=== PATIENT | female | born 1980 | race Caucasian/White ===

== ENCOUNTER 2017-11-05 22:19 | Emergency (ER) | payer MEDICAID, SELFPAY ==
[2017-11-05 22:20] VITALS: BP 142/98; PULSE 113; RESP 18; TEMP 37; O2SAT 96; BMI 48.8
--- NOTE | 2017-11-05 22:26 | NURSING ---
AFTER PT WAS TRIAGED SHE ASKED HOW LONG OF A WAIT IT WOULD BE. I INFORMED HER I DID NOT HAVE AN EXACT WAIT TIME BUT THAT WE STAFF IS WORKING FAST THEY CAN TO GET EVERYONE SEEN. PTS VITAL SIGNS ARE STABLE. PT STATED FORGET IT I WILL JUST GO TO [facility].
== END 2017-11-05 22:25 | disposition left against medical advice (07) ==
LOC: ED 23:49
PROVIDERS: Emergency Provider Emergency Medicine; Family Provider Family Medicine; PCP Family Medicine
DX: R06.02 Shortness of breath (principal)

== ENCOUNTER → 2018-05-31 09:09 | Outpatient (CLI) | payer MEDICAID, SELFPAY | PROVIDERS: Family Provider Family Medicine; PCP Family Medicine; Referring Provider Registered Nurse; Visit Provider Registered Nurse | DX: R00.2 Palpitations (principal) | CPT/HCPCS: 93225; 93226 ==

== ENCOUNTER 2019-12-09 08:03 | Observation (INO) | payer MEDICAID, SELFPAY ==
[2019-12-09] VITALS (17 sets, daily range): BP systolic 109–148; BP diastolic 61–94; PULSE 67–95; RESP 16–20; TEMP 36.6–37.1; O2SAT 95–98; BMI 47.2; BMI 46.9; BMI 47.3
--- NOTE | 2019-12-09 08:16 | EKG12_ITS ---
Test Reason : CP Blood Pressure : / mmHG Vent. Rate : 077 BPM Atrial Rate : 077 BPM P-R Int : 178 ms QRS Dur : 104 ms QT Int : 408 ms P-R-T Axes : 012 000 034 degrees QTc Int : 461 ms Normal sinus rhythm Low voltage QRS Borderline ECG Confirmed by JEFF SHEPARD, KARI ([id number]), business editor MORRIS FRANKLIN ([id number] on 12/11/2019 9:34:38 AM Referred By: MAGGIE Confirmed By:KARI AGUILAR MD
--- NOTE | 2019-12-09 08:17 | ED.VIS.GEN ---
History of Present Illness Chief Complaint: Chest Pain Informant: Patient Onset: Today Timing: Continuous Current Severity: Moderate Maximum Severity: Moderate Narrative: Patient presents with left-sided chest wall pain, it started about 2 hours ago she first described it as pressure but now it is aching. There is slight pleuritic component with this. She has no fever chills cough or congestion she has a history of GERD and this feels somewhat different. She is a diabetic, she does take antihypertensives. The pain is not radiating to her back it is not tearing in nature. She has no current abdominal pain or nausea. Past Medical History - Allergies and Home Meds Allergies/Adverse Reactions: Allergies Latex, Natural Rubber Allergy (Verified 12/09/19 08:04) Itching oxycodone HCl [From Percocet] Allergy (Verified 12/09/19 08:04) Rash tramadol HCl [From Ultram] Adverse Reaction (Verified 12/09/19 08:04) Upset Stomach Primary Care Physician: Liborio Dukes MD [Primary Care Provider] - Past Medical History: - - Hypertension, diabetes, obesity, asthma Surgical History: - - appendic, gallbladder,carpal tunnel,d&c oral surgery. Smoking Status: Former smoker - Family History Maternal Family History: Reports: Diabetes, Hypertension Paternal Family History: Reports: Diabetes, Heart Disease, Hypertension Review of Systems General: Denies: Fever Eyes: Denies: Visual changes - bilaterally ENT: Denies: Rhinorrhea, Sore throat Cardiovascular: Reports: Chest pain. Denies: Palpitations, Heart racing Respiratory: Denies: Dyspnea Gastrointestinal: Denies: Abdominal pain, Nausea Genitourinary: Denies: Dysuria Musculoskeletal: Denies: Myalgias, Neck pain Skin: Denies: Rash Neurological: Denies: Weakness Psych: Denies: Depression Endocrine: Denies: Polyuria Physical Exam Vital Signs/Narrative: Vital Signs Temp Pulse Resp BP Pulse Ox 12/09/19 08:04 98.3 F 83 17 148/76 H 96 General: Obese, - - She appears in some distress Head: Normocephalic Eyes: Perrl. Negative for: Pale conjunctiva ENT: Moist mucous membranes Neck: Supple Cardiovascular: Regular rate, Regular rhythm Respiratory: No distress Abdomen: Soft, Nontender Back: Nontender, Normal Inspection. Negative for: CVA tenderness Extremities: Nontender, No edema Skin: Normal color, No rash Neurological: Alert, Normal Strength, Normal Sensation Psychological: Normal affect Diagnostic/Tx/Re-eval Chest X-Ray - ED: 1 View, Read by Radiologist, Normal, Heart, Lungs - Rhythm Strip Rhythm Strip: Sinus Rhythm Rate: 77 Ectopy: None - EKG Initial EKG Interpretation: Sinus Rhythm, - - Normal sinus rhythm with a rate of 77. Normal MS interval. Normal QTc interval. Very slight nonspecific changes. Otherwise normal EKG. Interpreted by emergency doctor. - Medical Decision Making Patient has an unremarkable work-up, she has a nonspecific EKG, her heart score is a 4 therefore she will be admitted for observation for stress test. ED Disposition - Plan for ED Patient: Referrals: Liborio Dukes MD [Primary Care Provider] -
--- NOTE | 2019-12-09 08:20 | RAD_ITS ---
STUDY: X-RAY CHEST REASON FOR EXAM: Female, 39 years old. CP - ACUTE ONSET TECHNIQUE: Single AP portable view of the chest. COMPARISON: Comparison is made with prior study dated February 18, 2016. FINDINGS: EKG electrodes are seen. The lungs are clear and expanded. There is no demonstrated pleural abnormality. Normal size heart. Normal mediastinum and marko. Normal visualized pulmonary arteries. Normal visualized aortic arch and descending thoracic aorta. Normal visualized thoracic spine. Normal visualized ribs, clavicles, and shoulders. There is no demonstrated abnormality of the visualized soft tissue structures of the upper abdomen. RAD/Chest 1 View (Portable) IMPRESSION: Normal x-ray examination of the chest. Electronically Signed: Bill Helm, at 8:41 EDT , Service support ,
[2019-12-09] MEDS: Aspirin 81 MG TAB.CHEW 324 MG PO (08:22)
[2019-12-09 08:24] LABS: Absolute Lymphocyte Count 2.15 X10^3/uL (0.83-4.51); Absolute Neutrophil Count 4.1 X10^3/uL (2.0-7.7); Basophil# 0.03 X10^3/uL; Basophil% 0.4 % (0-1); Eosinophil# 0.11 X10^3/uL; Eosinophils% 1.6 % (0-5); Hematocrit 39.9 % (37-47); Hemoglobin 13.2 g/dL (12.0-15.0); Lymphocyte # 2.15 X10^3/ul (4.0); Lymphocyte % 30.7 % (19-41); Mean Corp Hgb Conc 33.1 g/dL (32-36); Mean Corpuscular Hgb 27.7 pg (27.0-32.0); Mean Corpuscular Volume 83.8 fL (81-99); Monocyte# 0.61 X10^3/uL; Monocyte% 8.7 % (0-10); NRBC Flagged by Analyzer 0 % (0-5); Neutrophil # 4.08 X10^3/uL (2.7-7.7); Neutrophil % 58.2 % (47-70); Platelet Count 338 K/mm3 (150-450); RBC Distribution Width CV 13.5 % (11.6-14.6); RBC Distribution Width SD 41.1 fl (35.1-43.9); Red Blood Count 4.76 M/mm3 (4.2-5.4)
[2019-12-09] MEDS: Nitroglycerin SL (ED/IMG/CATH) 0.4 MG TABLET SUBLINGUAL ×3 (08:25→08:36)
[2019-12-09 08:41] LABS: Anion Gap 5 (5-15); BUN 10 mg/dL (7-18); BUN/Creat Ratio 13.1 RATIO (10-20); Calcium,Total 8.8 mg/dL (8.5-10.1); Chloride 105 mmol/L (98-107); Creatinine, Serum 0.76 mg/dL (0.55-1.02); EST Glomerular Filtration Rate 89 mL/min (>60); Est Glom Filt Rate - Afr Amer 107 mL/min (>60); Estimated Creatinine Clearance 112.42 ml/min; Glucose 159 mg/dL (74-106); Potassium 3.9 mmol/L (3.5-5.1); Sodium Level 137 mmol/L (136-145)
[2019-12-09 08:44] LABS: D-Dimer Quantitative (DVT/PE) <= 0.27 FEU/ug/m (0.27-0.49)
--- NOTE | 2019-12-09 09:20 | HP.PCM_ITS ---
Problem List (1) Chest pain Status: Acute (2) Asthma Status: Chronic (3) Bipolar disorder Status: Chronic (4) Diabetes Status: Chronic (5) GERD (gastroesophageal reflux disease) Status: Chronic (6) IBS (irritable bowel syndrome) Status: Chronic (7) Morbid obesity Status: Chronic (8) Sleep apnea Status: Suspected History of Present Illness Date of Admission: 12/09/19 Chief Complaint: Chest pain The patient is a 39 year old F with past medical history sent in for obesity with BMI 47.3, essential hypertension diabetes mellitus type 2 who presented with chest pain. Pain started under her left breast later radiating to the retrosternal region. Patient describes the pain as pressure in nature. Due to the persistent nature of her symptoms she presented to the emergency department in the ED her initial assessment including EKG and initial cardiac enzymes came back unremarkable admitted to monitored bed for further management Past Medical History Past Medical History (Chronic Problems): Chronic Problems GERD (gastroesophageal reflux disease) (Chronic) IBS (irritable bowel syndrome) (Chronic) Morbid obesity (Chronic) Diabetes (Chronic) Asthma (Chronic) Bipolar disorder (Chronic) Allergies Latex, Natural Rubber Allergy (Verified 12/09/19 08:04) Itching oxycodone HCl [From Percocet] Allergy (Verified 12/09/19 08:04) Rash tramadol HCl [From Ultram] Adverse Reaction (Verified 12/09/19 08:04) Upset Stomach Home Medications: Ambulatory Orders Medication Instructions Recorded metFORMIN HCl [Glucophage] 500 mg PO BID 07/27/15 Dicyclomine HCl [Bentyl] 20 mg PO ACHS 02/15/16 Omeprazole [Prilosec] 40 mg PO BID 02/15/16 Lisinopril [Zestril] 10 mg PO DAILY #30 tablet 02/19/16 Albuterol Sulfate [Albuterol 2 inh INHALATION Q4H PRN PRN 12/09/19 Sulfate HFA] Fluticasone/Vilanterol [Breo 1 ea IH DAILY 12/09/19 Ellipta 200-25 Mcg INH] Surgical History: - - appendic, gallbladder,carpal tunnel,d&c oral surgery. Smoking Status: Former smoker - *Family History Maternal History Items: Diabetes, Hypertension Paternal History Items: Diabetes, Heart Disease, Hypertension Review of Systems Constitutional: Denies: Anorexia, Chills, Fever, Night Sweats, Weight Change HEENT: Denies: Head Aches, Sinus Congestion, Sinus Drainage Cardiovascular: Reports: Chest Pain, Chest Tightness. Denies: Orthopnea, Palpitations, Paroxysmal Noc. Dyspnea Respiratory: Denies: Cough, Shortness of breath at rest, Shortness of breath upon exertion, Sputum production Gastrointestinal: Denies: Abdominal Pain, Hematemesis, Hematochezia, Nausea, Melena, Vomiting Genitourinary: Denies: Dysuria, Frequency, Hematuria, Urgency Musculoskeletal: Denies: Joint Pain, Joint Tenderness Skin: Denies: Rash Neurological: Denies: Focal weakness, Numbness, Tingling Psychiatric: Denies: Homicidal Ideations, Suicidal Ideations Hematologic/ Lymphatic: Denies: Easy Bruising, Easy Bleeding VTE Information - Inpt Only VTE Present on Admission: No VTE Mechan Device Prophylaxis: None VTE Pharm Prophylaxis ordered?: Yes Objective: GENERAL: cooperative HEENT: Atraumatic; EYES; Anicteric, Normal Conjunctiva NECK; supple, normal thyroid, RESPIRATORY: Diminished to auscultation CARDIOVASCULAR: Regular S1 S2, GI: soft, normoactive bowel sounds, : No Renal angle tenderness; EXTREMITIES: No edema, no clubbing, MUSCULOSKELETAL: no muscle waisting NEURO: Awake; no lateralizing signs. SKIN: No Rash PSYCH; Flat affect - Physical Exam Vitals/I&O's: Vital Signs Temp Pulse Resp BP Pulse Ox 98.3 F 89 17 112/67 96 12/09/19 08:04 12/09/19 08:43 12/09/19 08:04 12/09/19 08:43 12/09/19 08:16 Oxygen Delivery Method Room Air Weight: 158.2 kg Body Mass Index (BMI) 47.2 Laboratory Results 12/09/19 08:10: WBC 7.0, RBC 4.76, Hgb 13.2, Hct 39.9, MCV 83.8, MCH 27.7, MCHC 33.1, RDW Std Deviation 41.1, RDW Coeff of [place] 13.5, Plt Count 338, MPV 9.0, Immature Gran % (Auto) 0.400, Neut % (Auto) 58.2, Lymph % (Auto) 30.7, [place] % (Auto) 8.7, Eos % (Auto) 1.6, Baso % (Auto) 0.4, Absolute Neuts (auto) 4.1, Absolute Lymphs (auto) 2.15, Nucleated RBC % 0 12/09/19 08:10: D-Dimer Quant (PE/DVT) <= 0.27 12/09/19 08:10: Sodium 137, Potassium 3.9, Chloride 105, Carbon Dioxide 27.0, Anion Gap 5, BUN 10, Creatinine 0.76, Estim Creat Clear Calc 112.42, Est GFR (MDRD) Af Amer 107, Est GFR (MDRD) Non-Af 89, BUN/Creatinine Ratio 13.1, Glucose 159 H, Calcium 8.8, Troponin I < 0.015 Assessment/Plan All Active Problems Chest pain (Acute) Patient is a 39-year-old lady presented with chest pain 1. Chest pain ?Admitted to monitored bed ordered serial cardiac enzymes to rule out VA. Patient to undergo a nuclear stress test once VA is ruled out 2. Hypertension ~ blood pressure controlled, home medications continued with dose adjustment as needed 3. Diabetes mellitus type II ~Controlled patient's oral hypoglycemics held. Placed on Accu-Cheks a.c. and at bedtime and covered with sliding scale insulin 4. Obesity with BMI of 47.3 ?Weight loss advised 5. DVT prophylaxis ?Lovenox OBSV E&M: 45473 Observation care discharge
--- NOTE | 2019-12-09 09:28 | NURSING ---
PCU CP KITSANTHOSH
--- NOTE | 2019-12-09 10:40 | EKG12_ITS ---
Test Reason : CP Blood Pressure : / mmHG Vent. Rate : 062 BPM Atrial Rate : 062 BPM P-R Int : 192 ms QRS Dur : 102 ms QT Int : 434 ms P-R-T Axes : 019 010 039 degrees QTc Int : 440 ms Normal sinus rhythm Low voltage QRS Borderline ECG Confirmed by JEFF SHEPARD, KARI ([id number]), desk editor MORRIS FRANKLIN ([id number]) on 12/11/2019 9:53:35 AM Referred By: ROBERT Confirmed By:KARI AGUILAR MD
[2019-12-09] MEDS: Dicyclomine 10 MG Capsule 20 MG PO ×3 (11:57→22:39)
[2019-12-09] MEDS: Pantoprazole Sodium 40 MG Tablet PO ×2 (11:57→22:39)
[2019-12-09] MEDS: Lisinopril 10 MG Tablet PO (11:57)
[2019-12-09] MEDS: Enoxaparin 40 MG/0.4 ML Syringe SC (11:58)
[2019-12-09 12:11] LABS: Bedside Glucose 127 mg/dL (70-110)
[2019-12-09] MEDS: Albuterol 2.5 MG/3 ML VIAL.NEB. INHALATION ×2 (13:32→18:50)
[2019-12-09] MEDS: Insulin Lispro 100 UNIT/ML INSULN.PEN SC (16:28)
[2019-12-09 17:16] LABS: Bedside Glucose 157 mg/dL (70-110)
[2019-12-09] MEDS: Budesonide Respules 0.5 MG/2 ML AMPUL.NEB. INHALATION (18:50)
[2019-12-09 22:46] LABS: Bedside Glucose 140 mg/dL (70-110)
[2019-12-10 02:15] VITALS: BP 111/65; PULSE 75; RESP 16; TEMP 36.6; O2SAT 95
[2019-12-10 03:42] VITALS: PULSE 69
[2019-12-10 06:22] VITALS: BP 128/76; PULSE 70; RESP 18; TEMP 36.8; O2SAT 96
[2019-12-10] MEDS: Pantoprazole Sodium 40 MG Tablet PO (06:27)
[2019-12-10] MEDS: Lisinopril 10 MG Tablet PO (06:27)
[2019-12-10 06:40] VITALS: PULSE 77
[2019-12-10 06:47] LABS: Anion Gap 7 (5-15); BUN 12 mg/dL (7-18); BUN/Creat Ratio 15.4 RATIO (10-20); Chloride 106 mmol/L (98-107); Creatinine, Serum 0.78 mg/dL (0.55-1.02); EST Glomerular Filtration Rate 86 mL/min (>60); Est Glom Filt Rate - Afr Amer 104 mL/min (>60); Estimated Creatinine Clearance 109.53 ml/min; Glucose 139 mg/dL (74-106); Magnesium 2.3 mg/dL (1.6-2.6); Sodium Level 138 mmol/L (136-145)
[2019-12-10 06:56] LABS: Bedside Glucose 148 mg/dL (70-110)
--- NOTE | 2019-12-10 10:22 | STRESSREP ---
Stress Test Report Date: 12-10-2019 Procedure: Exercise tolerance test/imaging study Indications: Chest pain; shortness of breath/dyspnea Consent: Per the patient Procedure: The patient exercised on a Guzman protocol for 5 minutes and 30 seconds completing Stage I and 2 minutes and 30 seconds of Stage II achieving a peak heart rate of 169 bpm (94 % predicted maximal heart rate) with a peak blood pressure 160/78 mmHg and a peak MET capacity of 7 METs. The baseline ECG demonstrated sinus rhythm. The peak exercise ECG demonstrated no obvious ECG changes. [There were no cardiac dysrhythmias pretest, during exercise, or recovery]. The functional capacity was considered decreased. There was [no complaint of chest discomfort during exercise or recovery]. The examination was discontinued secondary to dyspnea. Impression: 1. Technically adequate (percent predicted maximal heart rate greater than 85%) exercise tolerance test 2. Peak exercise ECG no obvious ECG changes 3. [There were no cardiac dysrhythmias pretest, during exercise, or recovery] 4. Nuclear images pending Myocardial perfusion imaging study: Technique: The patient was injected with 15.0= mCi of technetium 99m Cardiolite and subsequently rest SPECT Cardiolite nuclear imaging was obtained in the horizontal long, vertical long, and short axis views. The patient exercised on a Guzman protocol for 5 minutes and 30 seconds completing Stage I and 2 minutes and 30 seconds of Stage II achieving a peak heart rate of 169 bpm (94 % predicted maximal heart rate) with a peak blood pressure 160/78 mmHg and a peak MET capacity of 7 METs. The patient was injected with 45.0 mCi of technetium 99m Cardiolite and subsequently stress SPECT Cardiolite nuclear imaging was obtained in the horizontal long, vertical long, and short axis views. A gated Cardiolite study at peak stress was obtained. Interpretation: Rest and stress SPECT Cardiolite nuclear imaging status post realignment and normalization demonstrates [the appearance of relative uniform tracer uptake and myocardial perfusion appearing within normal limits]. [There is end systolic thickening and brightening]. The gated Cardiolite study demonstrates [myocardial thickening and inward wall motion]. The reported LVEF is 79 %. Impression: 1. Rest and stress SPECT Cardiolite nuclear imaging demonstrate [relative uniform tracer uptake and myocardial perfusion appearing within normal limits]. 2. The gated Cardiolite study reports an LVEF of 79 %. This note was generated with [employer] software. It may contain incorrect words, spelling, and punctuation that were not noted in checking the note before signing.
--- NOTE | 2019-12-10 10:52 | DCINST_ITS ---
You will use the following diet at home:: Calorie/Carbohydrate Controlled (specify 1200, 1400, etc) - 1800 Your food should be the consistency of: Regular Discharge Activity: Return to Normal Activity Instructions: ED Chest Pain NonCardiac Allergies/Adverse Reactions: Allergies Latex, Natural Rubber Allergy (Verified 12/09/19 08:04) Itching oxycodone HCl [From Percocet] Allergy (Verified 12/09/19 08:04) Rash tramadol HCl [From Ultram] Adverse Reaction (Verified 12/09/19 08:04) Upset Stomach Medications to take at Discharge metFORMIN HCl [Glucophage] 500 mg PO BID 07/27/15 Dicyclomine HCl [Bentyl] 20 mg PO ACHS 02/15/16 Omeprazole [Prilosec] 40 mg PO BID 02/15/16 Lisinopril [Zestril] 10 mg PO DAILY #30 tablet 02/19/16 Albuterol Sulfate [Albuterol Sulfate HFA] 2 inh INHALATION Q4H PRN PRN 12/09/19 Fluticasone/Vilanterol [Breo Ellipta 200-25 Mcg INH] 1 ea IH DAILY 12/09/19 Primary Care Physician: Liborio Dukes MD [Primary Care Provider] - Please follow up with your Primary Care Physician in: in 1-2 weeks Test Results: Test results from this visit will be discussed in further detail at your follow- up appointment, if applicable. Proposed Discharge Date: 12/10/19
--- NOTE | 2019-12-10 10:54 | DS.PCM_ITS ---
Discharge Date and Diagnosis Date of Admission: 12/09/19 Date of Discharge: 12/10/19 - Primary Discharge Diagnosis Chest pain - Secondary Discharge Diagnosis Chronic Problems GERD (gastroesophageal reflux disease) (Chronic) IBS (irritable bowel syndrome) (Chronic) Morbid obesity (Chronic) Diabetes (Chronic) Asthma (Chronic) Bipolar disorder (Chronic) Hospital Course and Treatment Imaging Results: 12/10/19 05:55 Nuclear Stress Test - Treadmil [NM] AM (NON MEDS) Operations: None Summary of Care Provided: Patient is a 39-year-old lady presented with chest pain 1. Chest pain ?Admitted to monitored bed ordered serial cardiac enzymes to rule out CA. Patient underwent a nuclear stress test once CA was ruled out. Her nuclear stress test came back negative for stress-induced ischemia. It was therefore felt patient pain was musculoskeletal. Instructed to follow-up with PCP for subsequent management 2. Hypertension ~ blood pressure controlled, home medications continued with dose adjustment as needed 3. Diabetes mellitus type II ~Controlled patient's oral hypoglycemics held. Placed on Accu-Cheks a.c. and at bedtime and covered with sliding scale insulin 4. Obesity with BMI of 47.3 ?Weight loss advised 5. DVT prophylaxis ?Lovenox - Physical Exam Vitals/I&O's: Vital Signs Temp Pulse Resp BP Pulse Ox 98.2 F 77 18 128/76 H 96 12/10/19 06:22 12/10/19 06:40 12/10/19 06:22 12/10/19 06:22 12/10/19 06:22 Oxygen Delivery Method Room Air Weight: 157 kg Body Mass Index (BMI) 46.9 Intake and Output for Last 24 Hours 12/08/19 12/09/19 12/10/19 23:59 23:59 23:59 Intake Total 660 / 660 750 / 750 Balance 660 / 660 750 / 750 General: Alert HEENT: Atraumatic Lungs: Normal air movement Neurological: Neuro grossly intact Psych/Mental Status: Normal Affect Laboratory Results 12/09/19 11:00: Troponin I < 0.015 12/09/19 11:56: POC Glucose 127 H 12/09/19 14:10: Troponin I < 0.015 12/09/19 16:27: POC Glucose 157 H 12/09/19 22:38: POC Glucose 140 H 12/10/19 05:46: Sodium 138, Potassium 4.0, Chloride 106, Carbon Dioxide 25.0, Anion Gap 7, BUN 12, Creatinine 0.78, Estim Creat Clear Calc 109.53, Est GFR (MDRD) Af Amer 104, Est GFR (MDRD) Non-Af 86, BUN/Creatinine Ratio 15.4, Glucose 139 H, Calcium 9.0, Magnesium 2.3 12/10/19 06:25: POC Glucose 148 H Current Medications Acetaminophen (Tylenol) 650 mg PO Q6H PRN PRN PRN Reason: Pain Score 1-10/Temp > 100.7 F Al Hydroxide/Mg Hydroxide (Mylanta Ii) 30 ml PO Q6H PRN PRN PRN Reason: Gastric Burning Albuterol Sulfate (Ventolin Aerosols) 2.5 mg INHALATION Q4H PRN PRN Reason: SOB &/OR WHEEZING Albuterol Sulfate (Ventolin Aerosols) 2.5 mg INHALATION Q6HWA.RT [facility] Last Admin: 12/10/19 07:00 Dose: Not Given Documented by: Budesonide (Pulmicort Aerosol) 0.5 mg INHALATION Q12H.RT [facility] Last Admin: 12/10/19 07:00 Dose: Not Given Documented by: Dicyclomine HCl (Bentyl) 20 mg PO [facility] Last Admin: 12/10/19 06:26 Dose: Not Given Documented by: Enoxaparin Sodium (Lovenox) 40 mg SC DAILY [facility] Last Admin: 12/09/19 11:58 Dose: 40 mg Documented by: Glucagon () 1 mg IM .X1 PRN PRN Reason: Hypoglycemia Guaifenesin (Robitussin) 20 ml PO Q4H PRN PRN PRN Reason: COUGH Sodium Chloride () 250 mls @ 15 mls/hr IV .[id number] PRN PRN Reason: Saline Flush Sodium Chloride () 250 mls @ 15 mls/hr IV .[id number] PRN PRN Reason: Additional IVPB Infusion Dextrose (Dextrose 10%-Water) 250 mls @ 999 mls/hr IV .Q16M PRN; Protocol PRN Reason: HYPOGLYCEMIA Insulin Human Lispro (Humalog Kwikpen (Bkc)) 0 unit SC [facility]; Protocol Last Admin: 12/10/19 06:26 Dose: Not Given Documented by: Lisinopril (Zestril) 10 mg PO DAILY [facility] Last Admin: 12/10/19 06:27 Dose: 10 mg Documented by: Melatonin (Melatonin) 3 mg PO QHS PRN PRN PRN Reason: INSOMNIA Nitroglycerin (Nitrostat) 0.4 mg SUBLINGUAL Q5M PRN PRN Reason: CARDIAC/CHEST PAIN Ondansetron HCl (Zofran) 4 mg IV Q8H PRN PRN PRN Reason: NAUSEA/VOMITING Pantoprazole Sodium (Protonix) 40 mg PO BID [facility] Last Admin: 12/10/19 06:27 Dose: 40 mg Documented by: Promethazine HCl (Phenergan) 25 mg IM Q6H PRN PRN PRN Reason: Breakthrough Nausea/Vomiting Sodium Chloride () 10 - 40 ml IV UD PRN PRN Reason: SALINE FLUSH Discharge Diet: 1800 Calorie Control Diet Discharge Activity: Return to Normal Activity Home Medications: Medications to take at Discharge metFORMIN HCl [Glucophage] 500 mg PO BID 07/27/15 Dicyclomine HCl [Bentyl] 20 mg PO ACHS 02/15/16 Omeprazole [Prilosec] 40 mg PO BID 02/15/16 Lisinopril [Zestril] 10 mg PO DAILY #30 tablet 02/19/16 Albuterol Sulfate [Albuterol Sulfate HFA] 2 inh INHALATION Q4H PRN PRN 12/09/19 Fluticasone/Vilanterol [Breo Ellipta 200-25 Mcg INH] 1 ea IH DAILY 12/09/19 Primary Care Physician: Liborio Dukes MD [Primary Care Provider] - Please follow up with your Primary Care Physician in: in 1-2 weeks Patient Instructions: ED Chest Pain NonCardiac Disposition: Home Minutes spent on discharge:: 35 Patient Condition:: Stable Medical Necessity - Tobacco Use Smoking Status: Former smoker Meaningful Use Info Meaningful Use Diagnoses (Choose all that apply): None applicable OBSV E&M: 97514 Observation care discharge
[2019-12-10 11:25] VITALS: BP 101/62; PULSE 74; RESP 18; TEMP 36.6; O2SAT 94
== END 2019-12-10 10:53 | disposition home or self-care (01) ==
LOC: ED 08:24 → PCU 10:03
PROVIDERS: Admitting Provider Internal Medicine; Emergency Provider Emergency Medicine; PCP Family Medicine; Visit Provider Internal Medicine
DX: R07.89 Other chest pain (principal); K21.9 Gastro-esophageal reflux disease without esophagitis; E11.9 Type 2 diabetes mellitus without complications; I10 Essential (primary) hypertension; J45.909 Unspecified asthma, uncomplicated; E66.01 Morbid (severe) obesity due to excess calories; G47.30 Sleep apnea, unspecified; K58.9 Irritable bowel syndrome, unspecified; Z79.899 Other long term (current) drug therapy; Z79.84 Long term (current) use of oral hypoglycemic drugs; Z87.891 Personal history of nicotine dependence; Z68.42 Body mass index [BMI] 45.0-49.9, adult
CPT/HCPCS: 36415; 71045; 78452; 80048; 82962; 83735; 84484; 85025; 85379; 93005; 93017; 94640; 96372; 99218; 99251; 99285; A9500; A4216; G0378; G0463

== ENCOUNTER 2023-02-23 18:09 | Emergency (ER) | payer MEDICAID, SELFPAY ==
[2023-02-23 18:10] VITALS: BP 132/73; PULSE 97; RESP 17; TEMP 36.8; O2SAT 99; BMI 46.6
--- NOTE | 2023-02-23 18:58 | EX.ED.DYSGE1 ---
HPI History of Present Illness Chief Complaint: Burn Informant: patient Narrative Narrative: 42-year-old female 2 days ago states she was in the sun for 6 hours straight with no sunscreen, she started having sunburn pain on her shoulders, chest, upper back the night of, it has been getting worse and today she started having blistering on top of the shoulders and the top of her upper back. She denies any systemic symptoms. She has had some blistering but no leaking of any of them. [facility] Medical History Carpal tunnel syndrome, bilateral Diabetes HTN (hypertension) Home Medications metformin 500 mg tablet 500 mg PO BID 07/27/15 [History Last Taken 02/15/16] dicyclomine 10 mg capsule 20 mg PO ACHS 02/15/16 [History Last Taken Unknown] omeprazole 20 mg capsule,delayed release 40 mg PO BID 02/15/16 [History Last Taken 02/15/16] lisinopril 10 mg tablet 10 mg PO DAILY #30 tabs 02/19/16 [Rx Last Taken Unknown] albuterol sulfate 90 mcg/actuation aerosol inhaler 2 inh inhalation Q4H PRN PRN Sob &/Or Wheezing 12/09/19 [History Last Taken Unknown] fluticasone furoate 200 mcg-vilanterol 25 mcg/dose inhalation powder 1 ea IH DAILY 12/09/19 [History Last Taken Unknown] hydrocodone-acetaminophen 5-325mg 5mg-325mg 1 tab PO Q12H PRN Pain 3 days #6 TABLETS 02/23/23 [Rx Last Taken Unknown] Allergy/AdvReac Type Severity Reaction Status Date / Time Latex, Natural Rubber Allergy Itching Verified 02/23/23 18:10 oxycodone HCl [From Percocet] Allergy Rash Verified 02/23/23 18:10 tramadol HCl [From Ultram] AdvReac Upset Verified 02/23/23 18:10 Stomach Family History no significant family his Surgical History (Updated 02/23/23 @ 18:38 by Mary Miramontes) H/O dilation and curettage H/O oral surgery Hx of appendectomy Hx of cholecystectomy Previous section Social History Smoking Status: Former smoker ROS ROS ED Constitutional Constitutional ED: Denies chills or fever(s) Integumentary Reports as per HPI; Denies pruritus EXAM Physical Exam Const Vital Signs: 02/23/23 18:10 02/23/23 18:35 Temperature 98.2 F Temperature Source Temporal Pulse Rate 97 Respiratory Rate 17 Respiratory Effort Normal Non-Labored Blood Pressure 132/73 H Blood Pressure Mean 92 Pulse Ox 99 Oxygen Delivery Method Room Air Positive well nourished, well developed and obese General Appearance ED: well developed and NAD Nutritional Appearance: obese HEENT Reports moist mucous membranes Eyes PERRL and EOMs intact bilaterally Resp normal respiratory effort Neuro oriented x3, CN's II-XII intact bilaterally and no sensory deficits noted Sensorium / Orientation: alert Motor Exam: strength 5/5 throughout Psych mental status grossly normal Skin Skin Narrative: Sunburn to the upper chest, upper arms, forehead, shoulders and upper back are the worst with some blistering consistent with second-degree, and very tender. No third-degree involvement, no necrotic tissue. MDM MDM MDM Narrative Medical decision making narrative: Consistent with sunburn with second-degree involvement. She does not have pruritus, so I do not think this is a slight photosensitivity reaction, she does not appear to be on any medications that would cause a significant photosensitivity reaction, nor she is she on an antibiotic right now. She is having trouble sleeping at night because of the pain when she lies down against the second-degree areas. There is one tense blister, we ruptured this in a sterile fashion and she understands this might help with her pain but also put her at risk for infection although this is less likely. Dressed with bacitracin she will continue to watch this, and gave her a short course of some hydrocodone for pain and discussed topicals to use otherwise. Discharge Plan Triage Chief Complaint: Burn ED Provider: Sylvester Rosales Dx/Rx/DC Orders Clinical Impression: Second degree sunburn Instructions: ED Sunburn Prescriptions: New hydrocodone-acetaminophen [hydrocodone-acetaminophen] 5-325 mg tablet 1 tab PO Q12H PRN (Reason: Pain) 3 Days Qty: 6 0RF No Action metformin 500 MG tablet 500 mg PO BID Patient Comments: blood sugar omeprazole 20 MG capsule 40 mg PO BID Patient Comments: acid reflux dicyclomine 10 MG capsule 20 mg PO ACHS Patient Comments: stomach lisinopril 10 MG tablet 10 mg PO DAILY Qty: 30 0RF Patient Comments: blood pressure albuterol sulfate 90 mcg/actuation HFA aerosol inhaler 2 inh inhalation Q4H PRN PRN (Reason: Sob &/Or Wheezing) fluticasone furoate-vilanterol 1 EACH blister with device 1 ea IH DAILY Primary Care Provider: Liborio Dukes Referrals: Liborio Dukes MD [Primary Care Provider] - As Needed Activity Restrictions/Additional Instructions: Get some after sun aloe-containing gel that also contains lidocaine or benzocaine to sprayed on the areas as needed. Keep any ruptured blisters covered with bacitracin or Neosporin and gauze/bandage to prevent infection. Cold compresses may help with regards to pain. Disposition Disposition: Home, Self Care
[2023-02-23] MEDS: HYDROcodone Bitartrate/Apap 5/325 Tablet PO (19:03)
== END 2023-02-23 19:20 | disposition home or self-care (01) ==
LOC: ED 19:10
PROVIDERS: Emergency Provider Emergency Medicine; PCP Family Medicine; Visit Provider Emergency Medicine
DX: L55.1 Sunburn of second degree (principal); E11.9 Type 2 diabetes mellitus without complications; Z87.891 Personal history of nicotine dependence; I10 Essential (primary) hypertension; E66.9 Obesity, unspecified
CPT/HCPCS: 99282

== ENCOUNTER 2024-05-19 13:58 | Emergency (ER) | payer MEDICAID, SELFPAY ==
[2024-05-19 13:58] VITALS: BP 173/79; PULSE 109; RESP 22; TEMP 36.6; O2SAT 96; BMI 45.4
--- NOTE | 2024-05-19 14:20 | EX.ED.DYSGE1 ---
HPI History of Present Illness Chief Complaint: Abscess Informant: patient and spouse/S.O. Narrative Narrative: 44-year-old female presenting to the emergency room out of concern for breast infection. Patient states that about 4 days ago she noticed a lump on the inferior aspect of the right breast. squeezed it and got what he describes as a yellow pus out of it. She states that yesterday she developed redness extending laterally towards the right axilla. Patient states she had a fever earlier in the day but does not have one currently. Patient denies a history of MRSA infections but is worried about it. She notes an allergy to Percocet and Ultram. She has not had anything to mask a fever currently. She notes a history of diabetes. [facility] Medical History Carpal tunnel syndrome, bilateral HTN (hypertension) Diabetes Home Medications ?Medication ?Instructions ?Recorded ?Last Taken ?Type metformin 500 mg tablet 500 mg PO BID 07/27/15 02/15/16 History dicyclomine 10 mg capsule 20 mg PO ACHS 02/15/16 Unknown History omeprazole 20 mg capsule,delayed 40 mg PO BID 02/15/16 02/15/16 History release lisinopril 10 mg tablet 10 mg PO DAILY #30 tabs 02/19/16 Unknown Rx albuterol sulfate 90 mcg/actuation 2 inh inhalation Q4H PRN PRN Sob 12/09/19 Unknown History aerosol inhaler &/Or Wheezing fluticasone furoate 200 1 ea IH DAILY 12/09/19 Unknown History mcg-vilanterol 25 mcg/dose inhalation powder hydrocodone-acetaminophen 5-325mg 1 tab PO Q12H PRN Pain 3 days #6 02/23/23 Unknown Rx 5mg-325mg TABLETS Allergy/AdvReac Type Severity Reaction Status Date / Time Latex, Natural Rubber Allergy Itching Verified 05/19/24 14:00 oxycodone HCl (From Percocet) Allergy Rash Verified 05/19/24 14:00 tramadol HCl (From Ultram) AdvReac Upset Verified 05/19/24 14:00 Stomach Surgical History H/O dilation and curettage Previous section Hx of cholecystectomy Hx of appendectomy H/O oral surgery Social History Smoking Status: Former smoker ROS ROS ED Constitutional Constitutional ED: Reports chills and fever(s); Denies weight loss Eyes Eyes: Denies change in vision or diplopia ENT ENT ED: Denies ear pain, rhinorrhea or sore throat Cardiovascular Cardiovascular: Denies chest pain, orthopnea, palpitations or racing heartbeat Respiratory/Chest Respiratory/Chest: Denies cough, dyspnea or orthopnea Gastrointestinal Gastrointestinal: Reports nausea; Denies abdominal pain, diarrhea or vomiting Genitourinary Genitourinary ED: Denies dysuria, hematuria or urinary frequency Musculoskeletal Musculoskeletal: Denies arthralgias or myalgias Integumentary Reports abscess and rash Neurologic Neurologic: Denies headache(s) or weakness Psychiatric Psychiatric: Denies anxiety, depression, suicidal ideation or suicidal thoughts Endocrine Endocrinology: Denies polydipsia, polyphagia or polyuria Allergic/Immunologic Allergic/Immunologic ED: Denies mouth swelling, tongue swelling or urticaria EXAM Physical Exam Const Vital Signs: 05/19/24 13:58 Temperature 97.8 F Temperature Source Oral Pulse Rate 109 H Respiratory Rate 22 H Blood Pressure 173/79 H Blood Pressure Mean 110 Pulse Ox 96 Oxygen Delivery Method Room Air Positive well nourished and well developed General Appearance ED: well developed HEENT Reports normocephalic, head/scalp atraumatic and moist mucous membranes Eyes PERRL and EOMs intact bilaterally Neck no lymphadenopathy, supple and no JVD Chest Wall Chest Narrative: Breast examination was performed with female nurse Mary Ramirez. Right breast demonstrates inferior lateral quadrant erythema. There is no fluctuance or induration. There is an area just inferior by about 2 cm from the areola that appears to have a recently drained pustule. There is mild increased warmth over the erythematous area. No drainage from the nipple. No nipple retraction. No sloughing of skin. Resp normal respiratory effort and clear to auscultation bilaterally Cardio regular rate, regular rhythm and no murmurs GI normal to inspection, nondistended, normoactive bowel sounds and non-tender Palpation: soft Back/Spine no CVA tenderness and normal ROM Extremity normal to inspection General Extremety ED: Negative for edema General Extremity: Negative for edema Neuro oriented x3 and CN's II-XII intact bilaterally Sensorium / Orientation: alert Motor Exam: strength 5/5 throughout Psych mental status grossly normal Mood & Affect: Negative for depressed or tearful Skin no rashes or lesions noted and no wounds MDM MDM MDM Narrative Medical decision making narrative: Differential diagnosis includes but not limited to mastitis cellulitis abscess sepsis Patient clinically appears well. Her oral temperature is normal. Initial triage heart rate of 109 however she is 91 in the room. Triage respirations of 22 however she is about 14 on my count. Bedside ultrasound I do not see a discrete fluid collection. There is no fluctuance or induration felt. patient will be started on oral antibiotic. I will also write for Zofran for nausea. Pain medications are limited as she has an allergy to Ultram and Percocet. There is a national back shortage currently of [employer]. Would recommend warm compresses. Follow-up with primary care or gynecology return if worsening History & Record Review Discussion w/independent historian: Patient and Significant other Discharge Plan Triage Chief Complaint: Abscess ED Provider: Javier Hall Dx/Rx/DC Orders Prescriptions: No Action metformin 500 MG tablet 500 mg PO BID Patient Comments: blood sugar omeprazole 20 MG capsule 40 mg PO BID Patient Comments: acid reflux dicyclomine 10 MG capsule 20 mg PO ACHS Patient Comments: stomach lisinopril 10 MG tablet 10 mg PO DAILY Qty: 30 0RF Patient Comments: blood pressure albuterol sulfate 90 mcg/actuation HFA aerosol inhaler 2 inh inhalation Q4H PRN PRN (Reason: Sob &/Or Wheezing) fluticasone furoate-vilanterol 1 EACH blister with device 1 ea IH DAILY hydrocodone-acetaminophen [hydrocodone-acetaminophen] 5-325 mg tablet 1 tab PO Q12H PRN (Reason: Pain) 3 Days Qty: 6 0RF Primary Care Provider: Liborio Dukes Referrals: Liborio Dukes MD [Primary Care Provider] - Print Language: Sinhala
[2024-05-19 14:36] VITALS: BP 173/79; PULSE 91; RESP 22; TEMP 36.6; O2SAT 96
== END 2024-05-19 14:40 | disposition home or self-care (01) ==
LOC: ED 14:39
PROVIDERS: Emergency Provider Emergency Medicine; PCP Family Medicine; Referring Provider Emergency Medicine; Visit Provider Emergency Medicine
DX: N61.1 Abscess of the breast and nipple (principal); E11.9 Type 2 diabetes mellitus without complications; Z87.891 Personal history of nicotine dependence; I10 Essential (primary) hypertension
CPT/HCPCS: 99282